=== PATIENT | female | born 1945 | race African-American/Black ===

== ENCOUNTER → 2016-11-17 | Day surgery (SDC) | payer MEDICARE ==
[~2016-11-17] MED LIST: ASPIRIN EC81 M1 PO; BYDUREON P2 MG/0.65 SUBQ; GLUCOTROL10 MG PO; LATANOPROST2.5 ML OU; METFORMIN HCL500 M1 PO; VALSARTAN/HCTZ PO
--- NOTE | ~2016-11-17 | OR ---
Unit #: [id number] #: [id number] Patient: YOVANY AGUAYO [id number] [address] [address] [id number] O MR#: [id number] NAME: YOVANY AGUAYO. ROOM: Date of Procedure: 11/17/2016 Admission Date: 11/17/2016 Surgeon: Kiran Mancuso M.D. : 1945 Attending Physician: Kiran Mancuso M.D. Primary Care Physician: Fuentes Martinez M.D. OPERATIVE REPORT PREOPERATIVE DIAGNOSIS Screening colonoscopy. POSTOPERATIVE DIAGNOSIS Normal colon. PROCEDURE PERFORMED Colonoscopy to cecum. ANESTHESIA IV sedation. COMPLICATIONS None. INDICATIONS FOR PROCEDURE The patient is a lady, who presents for screening colonoscopy. DESCRIPTION OF PROCEDURE The patient was taken to the operating theater and placed in a left lateral decubitus position. IV sedation was initiated. Digital rectal exam was normal. Colonoscope was then passed under direct vision and navigated to the cecum. The patient had excellent prep. I saw no evidence of neoplastic lesions, diverticula, colitis, or other findings. She tolerated the procedure well and sent to recovery room in good condition. PLAN Recommend repeat colonoscopy at 10 years. Dictated by... Vimal Luna/bernardo TD: 11/20/2016 13:57 JOB #: [id number] Unit #: [id number] #: [id number] Patient: YOVANY AGUAYO OPERATIVE REPORT Page 1 of 1 X Kiran Mancuso MD X PROCEDURE OPERATIVE NOTE
== END | disposition home or self-care (01) ==
LOC: COPS 10:50
DX: Z12.11 Encounter for screening for malignant neoplasm of colon (principal); I10 Essential (primary) hypertension; E11.9 Type 2 diabetes mellitus without complications; E66.01 Morbid (severe) obesity due to excess calories; G47.30 Sleep apnea, unspecified; M19.90 Unspecified osteoarthritis, unspecified site; Z68.43 Body mass index [BMI] 50.0-59.9, adult; Z79.82 Long term (current) use of aspirin; Z79.84 Long term (current) use of oral hypoglycemic drugs; Z79.899 Other long term (current) drug therapy; Z90.49 Acquired absence of other specified parts of digestive tract
CPT/HCPCS: 82947